=== PATIENT | male | born 1985 | race American Indian/Alaskan Native ===

== ENCOUNTER 2018-08-12 23:13 | Inpatient (IN) | payer MEDICAID ==
[2018-08-12] MEDS ORDERED: Iopamidol 612 MG/ML 150 ML Bottle IV SCH (23:45)
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
[2018-08-12] MEDS ORDERED: Diphtheria,Pertussis(Acell),Tetanus Vaccine 0.5 ML SDV IM ONE (23:50)
[2018-08-12] MEDS ORDERED: Sodium Chloride 0.9% 80 ML IV ONE (23:53)
[2018-08-12] MEDS ORDERED: Sodium Chloride 0.9% 10 ML Syringe FLUSH ONE (23:53)
[2018-08-12] MEDS ORDERED: cefOXitin 1 GM Vial IVPUSH ONE (23:56)
[2018-08-12] MEDS ORDERED: cefOXitin 2 GM Vial ONE (23:57)
[2018-08-12] MEDS ORDERED: Sodium Chloride 0.9% 50 ML ONE (23:58)
[2018-08-13] MEDS ORDERED: cefOXitin 2 GM in Sodium Chloride 0.9% 50 ML IV ONE (00:10)
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
[2018-08-13] MEDS ORDERED: fentaNYL 250 MCG/5 ML SDV ONE (00:18)
[2018-08-13] MEDS ORDERED: Neostigmine Methylsulfate 1 MG/ML 5 ML Syringe ONE (00:19)
[2018-08-13] MEDS ORDERED: Rocuronium 50 MG/5 ML Vial ONE ×2 (00:19→01:25)
[2018-08-13] MEDS ORDERED: Glycopyrrolate 0.2 MG/ML 5 ML MDV ONE (00:19)
[2018-08-13] MEDS ORDERED: Dexamethasone 4 MG/ML SDV ONE (00:19)
[2018-08-13] MEDS ORDERED: Succinylcholine 200 MG/10 ML MDV ONE (00:19)
[2018-08-13] MEDS ORDERED: Ondansetron 4 MG/2 ML SDV ONE (00:19)
[2018-08-13] MEDS ORDERED: Propofol 200 MG/20 ML SDV ONE (00:19)
[2018-08-13] MEDS ORDERED: Lactated Ringers 1,000 ML ONE (00:43)
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
[2018-08-13] MEDS ORDERED: fentaNYL 100 MCG/2 ML SDV ONE (01:30)
[2018-08-13] MEDS ORDERED: Sugammadex Sodium 200 MG/2 ML VIAL ONE (01:41)
[2018-08-13] MEDS ORDERED: hydrOXYzine HCl 100 MG/2 ML SDV IM PRN (02:07)
[2018-08-13] MEDS ORDERED: Ondansetron 4 MG/2 ML SDV IVPUSH PRN (02:07)
[2018-08-13] MEDS ORDERED: Naloxone 0.4 MG/ML SDV IVPUSH PRN (02:08)
[2018-08-13] MEDS: HYDROmorphone/Normal Saline 15 MG/30 ML PCA IV PRN ×2 (02:37→19:21)
[2018-08-13] MEDS ORDERED: Naloxone 0.4 MG/ML SDV IV PRN (07:09)
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
[2018-08-13] MEDS: D5 1/2 NS w/ 20 mEq/L KCl 1,000 ML IV SCH ×2 (13:28→19:24)
[2018-08-13] MEDS: Nicotine 21 MG/24 Hr Patch TRDERM SCH (14:21)
[2018-08-14] MEDS: D5 1/2 NS w/ 20 mEq/L KCl 1,000 ML IV SCH ×3 (02:46→19:33)
[2018-08-14] MEDS: Nicotine 21 MG/24 Hr Patch TRDERM SCH (09:25)
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
[2018-08-15] MEDS: HYDROmorphone/Normal Saline 15 MG/30 ML PCA IV PRN (06:20)
[2018-08-15] MEDS: Nicotine 21 MG/24 Hr Patch TRDERM SCH (09:25)
[2018-08-15] MEDS ORDERED: Bisacodyl 10 MG Supp RECTAL ONE (12:24)
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
[2018-08-15] MEDS: D5 1/2 NS w/ 20 mEq/L KCl 1,000 ML IV SCH (15:42)
[2018-08-16] MEDS: Nicotine 21 MG/24 Hr Patch TRDERM SCH (08:41)
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
[2018-08-16] MEDS: HYDROmorphone/Normal Saline 15 MG/30 ML PCA IV PRN (20:40)
[2018-08-17] MEDS: D5 1/2 NS w/ 20 mEq/L KCl 1,000 ML IV SCH (07:39)
[2018-08-17] MEDS: Nicotine 21 MG/24 Hr Patch TRDERM SCH (08:14)
[2018-08-17] MEDS ORDERED: Magnesium Hydroxide 400 MG/5 ML Susp 30 ML Cup PO PRN (14:33)
[2018-08-17] MEDS: ceFAZolin 2 GM in Premix Bag 1 BAG IV SCH ×2 (15:27→22:12)
[2018-08-17] MEDS: Acetaminophen/oxyCODONE 325-5 MG Tab PO PRN (15:34)
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
[2018-08-18] MEDS: Acetaminophen/oxyCODONE 325-5 MG Tab PO PRN ×5 (01:35→22:51)
[2018-08-18] MEDS: ceFAZolin 2 GM in Premix Bag 1 BAG IV SCH ×3 (06:30→22:49)
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
[2018-08-18] MEDS: Nicotine 21 MG/24 Hr Patch TRDERM SCH (09:24)
[2018-08-19] MEDS: Acetaminophen/oxyCODONE 325-5 MG Tab PO PRN ×4 (03:44→22:34)
[2018-08-19] MEDS: ceFAZolin 2 GM in Premix Bag 1 BAG IV SCH ×2 (07:06→15:02)
[2018-08-19] MEDS: Nicotine 21 MG/24 Hr Patch TRDERM SCH (09:00)
--- NOTE | 2018-08-19 10:25 | CRLUS ---
INDICATION: Evaluate left arm for fluid collection. Area of redness left upper arm. TECHNIQUE: Ultrasound venous duplex upper left extremity. Compression venous exam was performed using smallwood scale, color Doppler, and spectral Doppler imaging. COMPARISON: FINDINGS: The left internal jugular, subclavian, and axillary veins are patent with normal waveforms. The brachial, and basilic veins are fully compressible. Thrombus in the mid to distal cephalic vein which is noncompressible. No fluid collection or abscess seen in the area of redness. Preliminary results were telephoned to Dr. Kwan by the technologist. IMPRESSION: Noncompressible thrombus left mid to distal cephalic vein. No fluid collection or abscess Dictated by Clay Mendez MD @ Aug 19 2018 10:17AM Signed by Dr. Clay Mendez @ Aug 19 2018 10:22AM
[2018-08-19] MEDS ORDERED: Enoxaparin 40 MG/0.4 ML Syringe SUBCUT ONE (16:00)
[2018-08-20] MEDS: Acetaminophen/oxyCODONE 325-5 MG Tab PO PRN ×2 (04:53→11:36)
[2018-08-20] MEDS: Nicotine 21 MG/24 Hr Patch TRDERM SCH (11:25)
[2018-08-20] MEDS ORDERED: Warfarin 5 MG Tab PO ONE (11:30)
== END 2018-08-20 12:30 | disposition home or self-care (01) | DRG 908 ==
LOC: JP.ED 23:13 → JP.SDS 08-13 00:20 → JP.MS 08-13 02:35
PROVIDERS: ADMIT Surgery; ATTEND Surgery
PROC: 0W9G0ZZ Drainage of Peritoneal Cavity, Open Approach (ICD-10-PCS; principal; 2018-08-13)
PROC: 0W3G0ZZ Control Bleeding in Peritoneal Cavity, Open Approach (ICD-10-PCS; principal; 2018-08-13)
PROC: 0D9670Z Drainage of Stomach with Drainage Device, Via Natural or Artificial Opening (ICD-10-PCS; 2018-08-14)
DX: S36.893A Laceration of other intra-abdominal organs, initial encounter (principal); T80.29XA Infection following other infusion, transfusion and therapeutic injection, initial encounter; L03.114 Cellulitis of left upper limb; S31.611A Laceration without foreign body of abdominal wall, left upper quadrant with penetration into peritoneal cavity, initial encounter; S41.012A Laceration without foreign body of left shoulder, initial encounter; X99.1XXA Assault by knife, initial encounter; Z88.6 Allergy status to analgesic agent; Y84.8 Other medical procedures as the cause of abnormal reaction of the patient, or of later complication, without mention of misadventure at the time of the procedure
CPT/HCPCS: 36415; 36430; 71045; 71260; 74177; 80048; 80053; 81001; 85025; 85027; 85610; 85730; 86850; 86900; 86901; 86920; 86922; 90471; 90715; 93971-LT; 94762; 96374; 99285; 99285-25; A9270-GY; C9399; G0480; J0330; J0690; J0694; J1100; J1170; J1650; J2405; J2704; J2710; J3010; J3410; J3480; J3490; J7030; J7050; J7120; P9016

== ENCOUNTER 2021-06-18 03:33 | Emergency (ER) | payer MEDICAID | END 2021-06-18 05:29 | disposition home or self-care (01) | LOC: JP.ED 03:33 | DX: R07.81 Pleurodynia (principal); Z88.5 Allergy status to narcotic agent; Z72.0 Tobacco use | CPT/HCPCS: 36415; 71046; 85379; 99282; 99284-25 ==

== ENCOUNTER 2021-11-19 04:37 | Inpatient (IN) | payer MEDICAID ==
[2021-11-19] MEDS ORDERED: Celecoxib 200 MG Cap PO ONE (06:30)
[2021-11-19] MEDS ORDERED: Dextrose 5%-Lactated Ringers 1,000 ML IV SCH (06:30)
[2021-11-19] MEDS ORDERED: Acetaminophen 500 MG Tab PO ONE (06:30)
[2021-11-19] MEDS ORDERED: Meropenem 500 MG SDV ONE (06:44)
[2021-11-19] MEDS ORDERED: Ondansetron 4 MG/2 ML SDV ONE (06:56)
[2021-11-19] MEDS ORDERED: Succinylcholine 200 MG/10 ML MDV ONE (06:56)
[2021-11-19] MEDS ORDERED: Glycopyrrolate 0.2 MG/ML 5 ML MDV ONE (06:56)
[2021-11-19] MEDS ORDERED: Dexamethasone 4 MG/ML SDV ONE (06:56)
[2021-11-19] MEDS ORDERED: fentaNYL 250 MCG/5 ML SDV ONE ×2 (06:56→07:51)
[2021-11-19] MEDS ORDERED: Propofol 200 MG/20 ML SDV ONE (06:56)
[2021-11-19] MEDS ORDERED: Rocuronium 50 MG/5 ML Vial ONE (06:56)
[2021-11-19] MEDS ORDERED: Neostigmine Methylsulfate 1 MG/ML 5 ML Syringe ONE (06:56)
[2021-11-19] MEDS ORDERED: Ketamine 22 MG in Sodium Chloride 0.9% 19.78 ML IV SCH (07:00)
[2021-11-19] MEDS ORDERED: Ketamine 500 MG/5 ML MDV IV SCH (07:00)
[2021-11-19] MEDS ORDERED: Ondansetron 4 MG/2 ML SDV IVPUSH PRN ×2 (07:47→10:53)
[2021-11-19] MEDS ORDERED: diphenhydrAMINE 25 MG Cap PO PRN (07:47)
[2021-11-19] MEDS ORDERED: Naloxone 0.4 MG/ML SDV IVPUSH PRN (07:47)
[2021-11-19] MEDS ORDERED: diphenhydrAMINE 50 MG/ML SDV IVPUSH PRN (07:47)
[2021-11-19] MEDS ORDERED: Linezolid 600 MG/300 ML Premix Bag IRR ONE (07:54)
[2021-11-19] MEDS: Bupivacaine 0.5% 30 ML SDV ONE ×2 (08:29→09:00)
[2021-11-19] MEDS: Lidocaine 1% with EPINEPHrine 1:100,000 50 ML MDV ONE ×2 (08:29→09:00)
[2021-11-19] MEDS ORDERED: ceFAZolin 2 GM in Premix Bag 1 BAG IV ONE (08:30)
[2021-11-19] MEDS ORDERED: Lactated Ringers 1,000 ML ONE (08:46)
[2021-11-19] MEDS: HYDROmorphone/Normal Saline 6 MG/30 ML PCA Vial IV PRN ×2 (09:31→17:34)
[2021-11-19] MEDS ORDERED: hydrOXYzine HCL 100 MG/2 ML SDV IM PRN (10:41)
[2021-11-19] MEDS ORDERED: Cyclobenzaprine 10 MG Tab PO PRN (10:41)
[2021-11-19] MEDS: Acetaminophen 500 MG Tab PO SCH ×2 (13:00→17:37)
[2021-11-19] MEDS: Dextrose 5%-Lactated Ringers 1,000 ML IV SCH ×2 (13:00→20:26)
[2021-11-19] MEDS: ceFAZolin 2 GM in Premix Bag 1 BAG IV SCH ×2 (16:54→23:52)
[2021-11-19] MEDS: Celecoxib 200 MG Cap PO SCH (21:04)
[2021-11-20] MEDS: Acetaminophen 500 MG Tab PO SCH ×4 (00:21→18:00)
[2021-11-20] MEDS: Dextrose 5%-Lactated Ringers 1,000 ML IV SCH ×3 (03:38→22:39)
[2021-11-20] MEDS ORDERED: HYDROmorphone 2 MG Tab PO PRN (07:21)
[2021-11-20] MEDS: ceFAZolin 2 GM in Premix Bag 1 BAG IV SCH (07:35)
[2021-11-20] MEDS: Nicotine 21 MG/24 Hr Patch TRDERM SCH (09:47)
[2021-11-20] MEDS: Bisacodyl 5 MG Tab PO SCH ×2 (09:47→20:36)
[2021-11-20] MEDS: Docusate Sodium 100 MG Cap PO SCH ×2 (09:47→20:36)
[2021-11-20] MEDS: Celecoxib 200 MG Cap PO SCH ×2 (09:47→20:36)
[2021-11-21] MEDS: Acetaminophen 500 MG Tab PO SCH ×2 (00:31→05:41)
[2021-11-21 03:21] VITALS: PULSE 71
[2021-11-21 08:03] VITALS: BP 136/86
[2021-11-21] MEDS: Docusate Sodium 100 MG Cap PO SCH (08:09)
[2021-11-21] MEDS: Nicotine 21 MG/24 Hr Patch TRDERM SCH (08:09)
[2021-11-21] MEDS: Bisacodyl 5 MG Tab PO SCH (08:09)
[2021-11-21] MEDS: Celecoxib 200 MG Cap PO SCH (08:10)
== END 2021-11-21 09:45 | disposition home or self-care (01) | DRG 355 ==
LOC: JP.SDS 05:56 → JP.2SS 09:20 → EDSTATUS 13:15
PROVIDERS: ADMIT Surgery; ATTEND Surgery
PROC: 0WUF0JZ Supplement Abdominal Wall with Synthetic Substitute, Open Approach (ICD-10-PCS; principal; 2021-11-19)
PROC: 3E0M05Z Introduction of Adhesion Barrier into Peritoneal Cavity, Open Approach (ICD-10-PCS; 2021-11-19)
DX: K43.0 Incisional hernia with obstruction, without gangrene (principal); F41.9 Anxiety disorder, unspecified; F17.210 Nicotine dependence, cigarettes, uncomplicated; K02.9 Dental caries, unspecified; Z98.890 Other specified postprocedural states; Z88.5 Allergy status to narcotic agent; Z86.718 Personal history of other venous thrombosis and embolism; E66.9 Obesity, unspecified; Z68.34 Body mass index [BMI] 34.0-34.9, adult
CPT/HCPCS: A9270-GY; C1713; C1781; J0171; J0330; J0690; J1100; J1170; J2020; J2185; J2405; J2704; J2710; J2795; J3010; J3490; J7120; J7121

== ENCOUNTER 2023-01-06 01:40 | Emergency (ER) | payer MEDICAID ==
[2023-01-06 02:08] LABS: BASOPHILS ABSOLUTE AUTO 0.12 K/uL (0.00-0.10); BASOPHILS PERCENT AUTO 1.7 % (0.1-1.3); EOSINOPHILS ABSOLUTE AUTO 0.16 K/uL (0.00-0.40); EOSINOPHILS PERCENT AUTO 2.2 % (0.0-5.4); HEMATOCRIT 44.8 % (38.4-49.7); IMMATURE GRAN ABSOLUTE AUTO 0.03 K/uL (0.00-0.23); IMMATURE GRAN PERCENT AUTO 0.4 % (0.0-0.7); LYMPHOCYTES ABSOLUTE AUTO 2.94 K/uL (0.8-3.3); LYMPHOCYTES PERCENT AUTO 40.7 % (11.4-47.7); MEAN CORPUSCULAR HEMOGLOBIN 29.4 pg (31.6-35.5); MEAN CORPUSCULAR HGB CONC 33.5 g/dL (31.6-35.5); MEAN CORPUSCULAR VOLUME 87.8 fL (81.4-99.0); MONOCYTES ABSOLUTE AUTO 0.47 K/uL (0.20-0.90); MONOCYTES PERCENT AUTO 6.5 % (3.3-12.6); NEUTROPHILS ABSOLUTE AUTO 3.51 K/uL (1.0-7.6); NEUTROPHILS PERCENT AUTO 48.5 % (40.0-78.1); PLATELET COUNT,PLT 340 K/uL (130-375); WHITE BLOOD CELL COUNT,WBC 7.2 K/uL (3.2-11.0)
== END 2023-01-06 02:40 | disposition home or self-care (01) ==
LOC: JP.ED 01:40
DX: S16.1XXA Strain of muscle, fascia and tendon at neck level, initial encounter (principal); J00 Acute nasopharyngitis [common cold]; J30.2 Other seasonal allergic rhinitis; Z88.5 Allergy status to narcotic agent; Z72.0 Tobacco use; X58.XXXA Exposure to other specified factors, initial encounter
CPT/HCPCS: 36415; 85025; 86140; 87651-QW; 99284; U0002

== ENCOUNTER 2023-05-01 07:15 | Emergency (ER) | payer MEDICAID | END 2023-05-01 08:56 | disposition home or self-care (01) | LOC: JP.ED 07:15 | DX: J06.9 Acute upper respiratory infection, unspecified (principal); F17.210 Nicotine dependence, cigarettes, uncomplicated; Z88.5 Allergy status to narcotic agent | CPT/HCPCS: 87651-QW; 99283 ==

== ENCOUNTER 2023-07-23 17:31 | Emergency (ER) | payer MEDICAID | END 2023-07-23 21:17 | disposition left against medical advice (07) | LOC: JP.ED 17:31 | DX: Z53.21 Procedure and treatment not carried out due to patient leaving prior to being seen by health care provider (principal) ==

== ENCOUNTER 2025-04-04 09:37 | Emergency (ER) | payer MEDICAID ==
[2025-04-04 10:27] LABS: BASOPHILS ABSOLUTE AUTO 0.13 K/uL (0.00-0.10); BASOPHILS PERCENT AUTO 1.0 % (0.1-1.3); EOSINOPHILS PERCENT AUTO 0.1 % (0.0-5.4); IMMATURE GRAN ABSOLUTE AUTO 0.11 K/uL (0.00-0.23); IMMATURE GRAN PERCENT AUTO 0.8 % (0.0-0.7); LYMPHOCYTES ABSOLUTE AUTO 0.68 K/uL (0.8-3.3); LYMPHOCYTES PERCENT AUTO 5.0 % (11.4-47.7); MONOCYTES ABSOLUTE AUTO 1.49 K/uL (0.20-0.90); MONOCYTES PERCENT AUTO 11.0 % (3.3-12.6); NEUTROPHILS ABSOLUTE AUTO 11.14 K/uL (1.0-7.6); NEUTROPHILS PERCENT AUTO 82.1 % (40.0-78.1); PLATELET COUNT,PLT 328 K/uL (130-375); RED BLOOD CELL COUNT 4.83 M/uL (4.14-5.76); WHITE BLOOD CELL COUNT,WBC 13.6 K/uL (3.2-11.0)
[2025-04-04 10:29] LABS: EOSINOPHILS ABSOLUTE AUTO 0.01 K/uL (0.00-0.40)
[2025-04-04] MEDS: LORazepam 2 MG/ML SDV IVPUSH PRN (10:46)
[2025-04-04] MEDS: Ondansetron 4 MG/2 ML SDV IVPUSH ONE (10:46)
[2025-04-04 10:59] LABS: A/G RATIO 1.0 (1.2-2.2); ALANINE AMINOTRANSFERASE,ALT 115 U/L (12-78); ASPARTATE AMNIOTRANSFERASE,AST 147 U/L (15-37); BILIRUBIN TOTAL 1.5 mg/dL (0.2-1.0); BLOOD UREA NITROGEN,BUN 9 mg/dL (7-18); CARBON DIOXIDE,CO2 18 mmol/L (21-32); CHLORIDE,CL 99 mmol/L (100-108); CREATININE 1.1 mg/dL (0.8-1.3); EST CRCL DRUG DOSING (CG) 95.08 mL/min; ESTIMATED GFR 87 mL/min (>60); GLUCOSE RANDOM 181 mg/dL (74-106); POTASSIUM,K 3.9 mmol/L (3.6-5.2); PROTEIN TOTAL,TP 7.9 g/dL (6.4-8.2); SODIUM,NA 138 mmol/L (140-148)
[2025-04-04 11:02] LABS: TROPONIN I HIGH SENSITIVITY 4.1 pg/mL (<=60.3)
[2025-04-04 11:15] LABS: CREATINE KINASE,CK 111 U/L (39-308)
[2025-04-04 11:20] LABS: CORONAVIRUS COVID-19 NAA NEGATIVE (NEGATIVE); INFLUENZA A NAA NEGATIVE (NEGATIVE); INFLUENZA B NAA NEGATIVE (NEGATIVE); RESPIRATORY SYNCYTIAL VIR NAA NEGATIVE (NEGATIVE)
[2025-04-04] MEDS ORDERED: LORazepam 2 MG/ML SDV IVPUSH PRN (12:29)
[2025-04-04 14:19] LABS: APPEARANCE,URINE CLEAR (CLEAR); GLUCOSE,URINE NEGATIVE (NEGATIVE); OCCULT BLOOD,URINE NEGATIVE (NEGATIVE)
[2025-04-04 14:23] LABS: SQUAMOUS EPITHELIAL CELLS,UR NOT SEEN /HPF
[2025-04-04 14:24] LABS: UROTHELIAL CELLS,URINE NOT SEEN /HPF
[2025-04-04 14:25] LABS: AMPHETAMINES SCREEN, URINE NEGATIVE (NEGATIVE); METHADONE SCREEN, URINE NEGATIVE (NEGATIVE); METHAMPHETAMINES SCREEN, URINE NEGATIVE (NEGATIVE); OXYCODONE SCREEN,URINE NEGATIVE (NEGATIVE); PROPOXYPHENE SCREEN,URINE NEGATIVE (NEGATIVE); THC SCREEN,URINE 50 NG/ML PRESUMPTIVE POSITIVE (NEGATIVE)
== END 2025-04-04 17:11 ==
LOC: JP.ED 09:37
DX: R56.9 Unspecified convulsions (principal); F10.239 Alcohol dependence with withdrawal, unspecified; Z88.5 Allergy status to narcotic agent; Z79.899 Other long term (current) drug therapy
CPT/HCPCS: 36415; 70450; 80053; 80305; 80307; 81001; 82550; 83605; 83690; 83735; 84484; 85025; 86140; 87637; 93005; 93010; 96361; 96365; 96375; 99285; J2060; J2405; J2560; J7030